=== PATIENT | female | born 2000 | race Caucasian/White ===

== ENCOUNTER 2024-12-28 13:41 | Emergency (ER) | payer SELFPAY | END 2024-12-28 15:43 | disposition home or self-care (01) | LOC: MW.ED 13:41 | DX: S82.432A Displaced oblique fracture of shaft of left fibula, initial encounter for closed fracture (principal); S82.55XA Nondisplaced fracture of medial malleolus of left tibia, initial encounter for closed fracture; Z79.899 Other long term (current) drug therapy; Z75.3 Unavailability and inaccessibility of health-care facilities; X50.1XXA Overexertion from prolonged static or awkward postures, initial encounter | CPT/HCPCS: 29515; 73610-26-LT; 73610-LT; 99283; 99283-25 ==

== ENCOUNTER 2024-12-31 09:34 | Day surgery (SDC) | payer SELFPAY ==
[~2024-12-31 09:34] MED LIST: Albuterol 0.083% 2.5 MG/3 ML Neb Soln NEB PRN; Naloxone 0.4 MG/ML SDV IVPUSH PRN; Ondansetron 4 MG/2 ML SDV IVPUSH PRN; ceFAZolin 2 GM in Water For Injection, Sterile 20 ML IVPUSH ONE; fentaNYL 50 MCG/ML SDV IVPUSH PRN
[2024-12-31] MEDS ORDERED: fentaNYL 100 MCG/2 ML SDV ONE (10:15)
[2024-12-31] MEDS: Lactated Ringers 1,000 ML IV SCH (10:15)
[2024-12-31] MEDS ORDERED: dexmedeTOMIDine HCl 200 MCG/2 ML SDV ONE (10:16)
[2024-12-31] MEDS ORDERED: propofoL 500 MG/50 ML 50 ML ONE ×3 (10:17→11:31)
[2024-12-31] MEDS ORDERED: Dexamethasone 4 MG/ML 5 ML MDV ONE (10:20)
[2024-12-31] MEDS ORDERED: Ondansetron 4 MG/2 ML SDV ONE ×2 (10:20→10:22)
[2024-12-31] MEDS ORDERED: Ropivacaine 0.5% 5 MG/ML 30 ML SDV ONE (10:22)
[2024-12-31] MEDS ORDERED: Scopalamine 1mg/3day Transdermal Patch ONE (10:23)
[2024-12-31] MEDS ORDERED: Propofol 200 MG/20 ML SDV ONE ×2 (10:27→12:16)
[2024-12-31] MEDS: Scopalamine 1mg/3day Transdermal Patch TOP ONE (10:47)
[2024-12-31] MEDS ORDERED: Ketamine HCL/NACL, ISO-OSM 50 MG/5 ML Syringe ONE (10:54)
[2024-12-31] MEDS ORDERED: Ketorolac 30 MG/ML SDV ONE (12:28)
== END 2024-12-31 15:00 | disposition home or self-care (01) ==
LOC: MW.SDS 09:34
PROVIDERS: ATTEND Orthopaedic Surgery
DX: S82.842A Displaced bimalleolar fracture of left lower leg, initial encounter for closed fracture (principal); X58.XXXA Exposure to other specified factors, initial encounter
CPT/HCPCS: 27814; 81025; A9270; C1713; C1769; J0690; J1100; J1171; J1885; J2003; J2405; J2704; J2795; J3010; J7120; 01480; 64447; J3490